=== PATIENT | male | born 1965 | race American Indian/Alaskan Native ===

== ENCOUNTER 2016-06-14 09:31 | Emergency (ER) | payer MEDICAID ==
[2016-06-14 09:35] VITALS: BMI 24.2
[2016-06-14 09:39] VITALS: RESP 18
--- NOTE | 2016-06-14 11:13 | C.PDOC ---
History Of Present Illness 50 y/o male with hepatitis, depression, chronic hiccups, gerd c/o burning chest pain that is getting worse, always present, not improved by food. pt also c/o dark stool for more than a week with regular bm. pt started taking pepto bismol a week ago (stool was already black per patient prior to this) with no improvement in pain. pt ran out of protonix and ranitidine in last week. no fever or chills, no abdominal pain. no diarrhea. denies ah, si and hi. Time Seen by Provider: 06/14/16 10:13 Chief Complaint (Nursing): Medical Clearance History Per: Patient History/Exam Limitations: no limitations Onset/Duration Of Symptoms: Days Severity: Moderate Past Medical History Reviewed: Historical Data, Nursing Documentation, Vital Signs Vital Signs: Last Vital Signs Temp 98.2 F 06/14/16 09:36 Pulse 105 H 06/14/16 09:36 Resp 18 06/14/16 09:36 BP 148/96 H 06/14/16 09:36 Pulse Ox 98 06/14/16 13:15 - Medical History PMH: Anemia, Diabetes, Hepatitis Denies: HIV, HTN, Chronic Kidney Disease, Seizures, Sexually Transmitted Disease Surgical History: Appendectomy, Hernia Repair - [facility] Procedures DETOXIFICATION SERVICES FOR SUBSTANCE ABUSE TREATMENT (04/23/16) INDIV PSYCHOTHERAPY FOR SUBSTANCE ABUSE TREATMENT, SUPPORT (04/23/16) INDIV PSYCHOTHERAPY FOR SUBSTANCE ABUSE, [facility] (04/23/16) Family History: States: Unknown Family Hx - Social History Hx Tobacco Use: Yes Hx Alcohol Use: Yes Hx Substance Use: No (heroin, stopped) - Immunization History Hx Tetanus Toxoid Vaccination: No Hx Influenza Vaccination: No Hx Pneumococcal Vaccination: No Review Of Systems Constitutional: Negative for: Fever, Chills Cardiovascular: Negative for: Chest Pain, Palpitations Respiratory: Negative for: Cough, Shortness of Breath Gastrointestinal: Positive for: Melena. Negative for: Nausea, Vomiting, Abdominal Pain, Constipation Genitourinary: Negative for: Dysuria, Frequency, Incontinence Skin: Negative for: Rash Neurological: Negative for: Weakness, Numbness Psych: Negative for: Depression Physical Exam - Physical Exam Appears: Non-toxic, No Acute Distress Skin: Normal Color, Warm, Dry Head: Atraumatic, Normacephalic Neck: Normal, Normal ROM Chest: Symmetrical, No Deformity, No Tenderness Cardiovascular: Rhythm Regular, No Murmur Respiratory: Normal Breath Sounds, No Rales, No Rhonchi, No Wheezing Gastrointestinal/Abdominal: Bowel Sounds, Soft, No Tenderness Rectal: Normal Exam, Other (dark brown stool) Neurological/Psych: Oriented x3, Normal Speech, Normal Cognition, Normal Motor, Normal Sensation ED Course And Treatment - Laboratory Results Result Diagrams: 06/14/16 11:24 06/14/16 11:24 ECG: Viewed By Me ECG Rhythm: Sinus Rhythm Interpretation Of ECG: non specific t wave, nsr Rate From EC O2 Sat by Pulse Oximetry: 98 Pulse Ox Interpretation: Normal Progress Note: pt feeling much better after iv pepcid,. sts burning in chest resolved. will d/c with outpatient gi f/u and rx for ranitidine. Reassessment Condition: Improved Disposition Counseled Patient/Family Regarding: Diagnosis, Need For Followup, Rx Given - Disposition Referrals: [facility] [Outside] [facility] [Outside] Disposition: HOME/ ROUTINE Disposition Time: 14:29 Condition: IMPROVED Prescriptions: Ranitidine HCl [Ranitidine 150] 150 mg PO DAILY #30 tab Instructions: Gastroesophageal Reflux Disease (ED) Forms: General Discharge Instructions - Clinical Impression Clinical Impression: Gastroesophageal reflux disease
[2016-06-14 11:31] LABS: BASO # 0.1 K/uL (0.0-0.2); BASO % 0.8 % (0.0-2.0); EOS # 0.3 K/uL (0.0-0.7); EOS % 2.5 % (0.0-4.0); HEMATOCRIT 41.2 % (35.0-51.0); LYMPH # 2.6 K/uL (1.0-4.3); LYMPH % 22.1 % (20.0-40.0); MEAN CELL VOLUME 91.1 fL (80.0-94.0); MEAN CORPUSCULAR HEMOGLOBIN 29.3 pg (27.0-31.0); MEAN CORPUSCULAR HGB CONC 32.2 g/dL (33.0-37.0); MEAN PLATELET VOLUME 6.7 fL (7.2-11.7); MONO % 8.6 % (0.0-10.0); RED CELL DISTRIBUTION WIDTH 16.7 % (11.5-14.5); WHITE BLOOD COUNT 11.9 K/uL (4.8-10.8)
[2016-06-14 11:41] LABS: CHLORIDE 97 mmol/L (98-107); POTASSIUM 4.5 mmol/L (3.6-5.2); SODIUM 137 mmol/L (132-148)
[2016-06-14 11:43] LABS: BILIRUBIN,TOTAL 0.7 mg/dL (0.2-1.3); GFR AFRICAN-AMERICAN > 60
[2016-06-14 11:44] LABS: ALB/GLOB RATIO 1.2 (1.0-2.1); ALKALINE PHOSPHATASE 61 U/L (38-126); ALT/SGPT 38 U/L (21-72); AST/SGOT 55 U/L (17-59); BLOOD UREA NITROGEN 16 mg/dL (9-20); CALCIUM 8.5 mg/dl (8.6-10.4); CARBON DIOXIDE 27 mmol/L (22-30); GLUCOSE,RANDOM 86 mg/dL (75-110); TOTAL PROTEIN 7.5 g/dL (6.3-8.3)
[2016-06-14 14:50] VITALS: BP 103/70; PULSE 89; TEMP 97.9
--- NOTE | 2016-06-15 19:59 | CARD ---
APPROVED REPORT EKG Measurement Heart [id number] <Conclusion> Normal sinus rhythm Nonspecific T wave abnormality Abnormal ECG
[2016-06-16 06:38] VITALS: O2SAT 98
== END 2016-06-14 15:26 | disposition home or self-care (01) ==
LOC: C.ER 09:31
DX: K21.9 Gastro-esophageal reflux disease without esophagitis (principal)

== ENCOUNTER 2016-07-15 21:58 | Inpatient (IN) | payer MEDICAID ==
[2016-07-15 21:59] VITALS: BMI 24.2
--- NOTE | 2016-07-15 23:00 | C.PDOC ---
History Of Present Illness Patient BIBA for evaluation s/p foreign body ingestion. Patient states he accidentally "swallowed a toothbrush". He states he has h/o chronic hiccups x approx 1 year, and that he has found when he stimulates his gag reflex with a toothbrush it alleviates the hiccups. 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 He c/o discomfort in his chest, but denies SOB, cough, fever. Time Seen by Provider: 07/15/16 22:07 Chief Complaint (Nursing): Foreign Body History Per: Patient History/Exam Limitations: None Onset/Duration Of Symptoms: Other (45 ORTHODONTIC TREATMENT COORDINATOR) Current Symptoms Are (Timing): Still Present Symptoms Have Been: Continuous Severity: Mild Past Medical History Reviewed: Historical Data, Nursing Documentation, Vital Signs Vital Signs: Last Vital Signs Temp 98.2 F 07/16/16 16:19 Pulse 72 07/16/16 16:19 Resp 20 07/16/16 16:19 BP 112/68 07/16/16 16:19 Pulse Ox 96 07/16/16 16:19 - Medical History PMH: Anemia, Diabetes, Hepatitis Surgical History: Appendectomy, Hernia Repair - [facility] Procedures DETOXIFICATION SERVICES FOR SUBSTANCE ABUSE TREATMENT (04/23/16) INDIV PSYCHOTHERAPY FOR SUBSTANCE ABUSE TREATMENT, SUPPORT (04/23/16) INDIV PSYCHOTHERAPY FOR SUBSTANCE ABUSE, [facility] (04/23/16) Family History: States: No Known Family Hx - Social History Hx Tobacco Use: Yes Hx Alcohol Use: Yes Hx Substance Use: No (heroin, stopped) - Immunization History Hx Tetanus Toxoid Vaccination: No Hx Influenza Vaccination: No Hx Pneumococcal Vaccination: No Review Of Systems Except As Marked, All Systems Reviewed And Found Negative. Cardiovascular: Negative for: Chest Pain, Palpitations Respiratory: Negative for: Cough, Shortness of Breath Physical Exam - Physical Exam Appears: Well, Non-toxic, Other (speaking in full sentences, intermittent hiccups) Skin: Normal Color Head: Normacephalic Eye(s): bilateral: Normal Inspection Nose: Normal Oral Mucosa: Moist Tongue: Normal Appearing, No Swelling Lips: Normal Appearing, No Swelling Throat: Normal, No Erythema, No Exudate, No Drooling Cardiovascular: Rhythm Regular Respiratory: Normal Breath Sounds, No Rales, No Rhonchi, No Stridor, No Wheezing Gastrointestinal/Abdominal: Normal Exam, Bowel Sounds, Soft, No Tenderness Neurological/Psych: Oriented x3 ED Course And Treatment - Laboratory Results Result Diagrams: 07/15/16 22:50 07/15/16 22:50 O2 Sat by Pulse Oximetry: 97 (RA) Pulse Ox Interpretation: Normal - Other Rad CXR X-Ray: Viewed By Me, Read By Radiologist Interpretation: Name: CELSO JUAREZ Age: 50Years M Date: 07/15/2016. Requesting Physician: SMITA BOSWELL : 1965. [facility] Procedure Ordered As Accession Number of. Images. XR CHEST 2 VIEWS FRONTAL &. LAT. XR CHEST TWO VIEWS PA. LAT. [id number]. J. 3. Provided Clinical History: swallowed toothbrush. Page 1 of 2. EXAM: XR Chest, 2 Views. CLINICAL HISTORY: 50 years old, male; Injury or trauma and screening exam; Injury Swallowed tooth brush; Late effect. from previous injury; Other screening; Additional info: Swallowed toothbrush. TECHNIQUE: Frontal and lateral views of the chest. COMPARISON: No relevant prior studies available. FINDINGS: The cardiomediastinal silhouette is unremarkable. The lungs are clear. No subdiaphragmatic free air or pneumothorax. The trachea is midline. A radiopaque foreign body is identified within the middle mediastinum, likely within the esophagus, as. detailed above. This is best identified on lateral view. IMPRESSION: No focal infiltrate or effusion. Radiopaque foreign body, as detailed above. Thank you for allowing us to participate in the care of your patient. Dictated and Authenticated by: Melissa Barrera MD - CT Scan/US CT SCAN CHEST/ABD Other Rad Studies (CT/US): Read By Radiologist, Radiology Report Reviewed CT/US Interpretation: Name: CELSO JUAREZ Age: 50Years M Date: 07/15/2016. SSN: [id number] : 1965. Study: CT CHEST WO Requesting Physician: SMITA OBSWELL. Images: 811. Addl Studies : [id number] - CT ABDOMEN WO (0). Provided Clinical History: swallowed toothbrush. CONFIDENTIALITY STATEMENT. This transmission is confidential and is intended to be a privileged communication. It is intended only for the use of the addressee. Access to this. message by anyone else is unauthorized. If you are not the intended recipient, any disclosure, copying, distribution or any action taken, or omitted to. be taken in reliance on it is prohibited and may be unlawful. If you received this communication in error, please notify us by telephone, so that return. of this document to us can be arranged. Page 1 of 3. EXAM: CT Chest Without Intravenous Contrast. CLINICAL HISTORY: 50 years old, male; Pain; Abdominal pain; Other: Swallowed toothbrush; Chest pain; Patient HX: Cxr. and soft tissue neck , no report, images sent already. TECHNIQUE: Axial computed tomography images of the chest without intravenous contrast. This CT exam was. performed using one or more of the following dose reduction techniques: automated exposure. control, adjustment of the mA and/or kV according to patient size, and/or use of iterative. reconstruction technique. Coronal and sagittal reformatted images were created and reviewed. FINDINGS: Lungs: No mass. No consolidation. Pleural spaces: No significant effusion. No pneumothorax. Heart: No cardiomegaly. No significant pericardial effusion. Vasculature: No aortic aneurysm. Lymph nodes: No enlarged lymph nodes. Bones: No acute fracture. At approximately the level of T10/T11, within the esophagus is a 3.8 cm radiopaque foreign body,. presumably representing the toothbrush, by patient's history. IMPRESSION: Radiopaque foreign body within the esophagus or at the level of T10/T11, as detailed above. [facility]. Final Radiology Report [id number]. Name: CELSO JUAREZ Age: 50Years M Date: 07/15/2016. SSN: [id number] : 1965. Study: CT CHEST WO Requesting Physician: SMITA BOSWELL. Images: 811. Addl Studies: [id number] - CT ABDOMEN WO (0). Provided Clinical History: swallowed toothbrush. CONFIDENTIALITY STATEMENT. This transmission is confidential and is intended to be a privileged communication. It is intended only for the use of the addressee. Access to this. message by anyone else is unauthorized. If you are not the intended recipient, any disclosure, copying, distribution or any action taken, or omitted to. be taken in reliance on it is prohibited and may be unlawful. If you received this communication in error, please notify us by telephone, so that return. of this document to us can be arranged. Page 2 of 3. . EXAM: CT Abdomen Without Intravenous Contrast. CLINICAL HISTORY: 50 years old, male; Pain; Abdominal pain; Other: Swallowed toothbrush; Chest pain; Patient HX: Cxr. and soft tissue neck , no report, images sent already. TECHNIQUE: Axial computed tomography images of the abdomen without intravenous contrast. This CT exam. was performed using one or more of the following dose reduction techniques: automated exposure. control, adjustment of the mA and/or kV according to patient size, and/or use of iterative. reconstruction technique. Coronal and sagittal reformatted images were created and reviewed. COMPARISON: CR - CHEST TWO VIEWS (PA/LAT) 07/15/2016 10:28:25 PM. FINDINGS: Lower thorax: The bilateral lung bases are clear. ABDOMEN: Liver: No acute findings. Gallbladder and bile ducts: No acute finding. No calcified stones. No intra- extrahepatic biliary ductal. dilation. [facility]. Final Radiology Report [id number]. Name: CELSO JUAREZ Age: 50Years M Date: 07/15/2016. SSN: [id number] : 1965. Study: CT CHEST WO Requesting Physician: SMITA BOSWELL. Images : 811. Addl Studies: [id number] - CT ABDOMEN WO (0). Provided Clinical History: swallowed toothbrush. CONFIDENTIALITY STATEMENT. This transmission is confidential and is intended to be a privileged communication. It is intended only for the use of the addressee. Access to this. message by anyone else is unauthorized. If you are not the intended recipient, any disclosure, copying, distribution or any action taken, or omitted to. be taken in reliance on it is prohibited and may be unlawful. If you received this communication in error, please notify us by telephone, so that return. of this document to us can be arranged. Page 3 of 3. Pancreas: Limited evaluation secondary to the lack of intravenous contrast. Spleen: No acute findings. Adrenals: No acute findings. Kidneys and ureters: No obstructing stones. No hydronephrosis. Stomach and bowel: Radiopaque foreign body within the esophagus, at the level of T10/T11, as. detailed above. No additional acute pathology, as detailed above. IMPRESSION: Radiopaque foreign body within the esophagus at the level of T10/T11, as detailed above. Thank you for allowing us to participate in the care of your patient. Dictated and Authenticated by: Melissa Barrera MD. 11:50 PM Eastern Time ([place] & [place]) Progress Note: Blood work, CXR and soft tissue neck Xray ordered and reviewed. Patient requesting something for hiccups - IM thorazine ordered. 10:55pm- Spoke with Dr. Benítez GI fellow, he will discuss with attending. He recommends cancelling Ct scan at this time. Will call back with plan. 11:05PM - Spoke with GI Fellow, he is on way in to see patient - would like CT scan to evaluate if foreign body is past pylorus (if yes, then will need surgical eval) . 11:55pm- Patient will be taken for endoscopy by GI (Dr. Mcfarland) as per GI fellow Dr. Benítez. Disposition - Disposition Disposition: HOSPITALIZED Disposition Time: 23:58 Condition: STABLE - Clinical Impression Clinical Impression: Foreign body Decision To Admit - Pt Status Changed To: Hospital Disposition Of: SDS- Endo,OR,Cath,IR - . Bed Request Type: Same Day Surgery Admitting Physician: Reji Mcfarland Patient Diagnosis: Foreign body
[2016-07-15 23:07] LABS: BASO # 0.1 K/uL (0.0-0.2); BASO % 0.8 % (0.0-2.0); EOS # 0.3 K/uL (0.0-0.7); EOS % 2.4 % (0.0-4.0); HEMATOCRIT 41.5 % (35.0-51.0); LYMPH # 2.7 K/uL (1.0-4.3); LYMPH % 25.3 % (20.0-40.0); MEAN CELL VOLUME 92.2 fL (80.0-94.0); MEAN CORPUSCULAR HEMOGLOBIN 29.7 pg (27.0-31.0); MEAN CORPUSCULAR HGB CONC 32.1 g/dL (33.0-37.0); MEAN PLATELET VOLUME 6.5 fL (7.2-11.7); MONO % 9.6 % (0.0-10.0); RED CELL DISTRIBUTION WIDTH 14.8 % (11.5-14.5); WHITE BLOOD COUNT 10.6 K/uL (4.8-10.8)
[2016-07-15 23:16] LABS: CHLORIDE 97 mmol/L (98-107); SODIUM 137 mmol/L (132-148)
[2016-07-15 23:19] LABS: ALB/GLOB RATIO 1.3 (1.0-2.1); ALKALINE PHOSPHATASE 78 U/L (38-126); ALT/SGPT 51 U/L (21-72); AST/SGOT 43 U/L (17-59); BILIRUBIN,TOTAL 0.8 mg/dL (0.2-1.3); BLOOD UREA NITROGEN 12 mg/dL (9-20); CALCIUM 8.8 mg/dl (8.6-10.4); CARBON DIOXIDE 28 mmol/L (22-30); GFR AFRICAN-AMERICAN > 60; GLUCOSE,RANDOM 93 mg/dL (75-110); INR 1.1; TOTAL PROTEIN 7.9 g/dL (6.3-8.3)
--- NOTE | 2016-07-15 23:32 | CP.PCM.CON ---
<Ankit Benítez - Last Filed: 07/16/16 01:08> History of Present Illness - History of Present Illness History of Present Illness: PGY4 GI Fellow Consult Note Patient is a 50yo male with PMHx significant for chronic hiccups, diabetes, GERD , HCV (untreated), depression, EtOH and heroin abuse in remission who presented to the ED with chest pain following ingestion of his toothbrush. The patient states that he suffers with chronic hiccups and can only relieve them with stimulation of his gag reflex. Tonight, he tried to induce gagging using his toothbrush and accidentally swallowed it in the process. Currently, he admits to substernal chest pain along with persistent hiccups. He is able to speak in full sentences and is tolerating his secretions without issue. He admits that this exact problem had happened approximately one year ago and required emergent EGD for retrieval. He also admits that he underwent laryngoscopy this morning at his ENT physician's office for evaluation of his chronic hiccups. He uses Thorazine daily for hic chronic hiccups with minimal relief. Currently, he denies any fever, chills, abdominal pain, nausea or vomiting. 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 absent: Dyspnea, Palpitations - Respiratory Respiratory: Cough. absent: Dyspnea, Change in Mucous Color - Gastrointestinal Gastrointestinal: absent: Abdominal Pain, Constipation, Cramping, Diarrhea, Dyspepsia, Dysphagia, Heartburn, Hematemesis, Hematochezia, Melena, Nausea, Vomiting - Genitourinary Genitourinary: absent: Dysuria, Urinary Frequency, Urinary Urgency - Musculoskeletal Musculoskeletal: absent: Back Pain, Neck Pain - Integumentary Integumentary: absent: New Lesions, Rash - Neurological Neurological: absent: Dizziness, Numbness, Focal Weakness - Psychiatric Psychiatric: absent: Anxiety, Depression - Endocrine Endocrine: absent: Polydipsia, Polyphagia, Polyuria - Hematologic/Lymphatic Hematologic: absent: Easy Bleeding, Easy Bruising, Lymphadenopathy Past Patient History - Past Medical History & Family History Past Medical History?: Yes - Past Social History Smoking Status: Heavy Smoker > 10 Cigarettes Daily - CARDIAC Hx Hypertension: No - PULMONARY Hx Respiratory Disorders: No Hx Tuberculosis: No - NEUROLOGICAL Hx Seizures: No - HEENT Hx HEENT Problems: No - RENAL Hx Chronic Kidney Disease: No - ENDOCRINE/METABOLIC Hx Endocrine Disorders: Yes Hx Diabetes Mellitus Type 2: Yes - HEMATOLOGICAL/ONCOLOGICAL Hx Anemia: Yes Hx Human Immunodeficiency Virus (HIV): No - INTEGUMENTARY Hx Dermatological Problems: No - MUSCULOSKELETAL/RHEUMATOLOGICAL Hx Musculoskeletal Disorders: No Hx Falls: No - GASTROINTESTINAL Hx Gastrointestinal Disorders: Yes Hx Gastroesophageal Reflux: Yes (GERD) - GENITOURINARY/GYNECOLOGICAL Hx Sexually Transmitted Disorders: No - PSYCHIATRIC Hx Substance Use: No (heroin, stopped) - SURGICAL HISTORY Hx Appendectomy: Yes - ANESTHESIA Hx Anesthesia: Yes Hx Anesthesia Reactions: No Hx Malignant Hyperthermia: No Meds Allergies/Adverse Reactions: Allergies Allergy/AdvReac Type Severity Reaction Status Date / Time No Known Allergies Allergy Verified 07/15/16 22:09 Physical Exam - Constitutional Appears: Non-toxic, No Acute Distress - Eye Exam Eye Exam: EOMI, PERRL - ENT Exam ENT Exam: Mucous Membranes Moist - Respiratory Exam Respiratory Exam: Clear to Auscultation Bilateral. absent: Rales, Rhonchi, Wheezes - Cardiovascular Exam Cardiovascular Exam: RRR, +S1, +S2 - GI/Abdominal Exam GI & Abdominal Exam: Normal Bowel Sounds, Soft. 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 - Neurological Exam Neurological exam: Alert, Oriented x3 - Psychiatric Exam Psychiatric exam: Anxious, Normal Mood - Skin Skin Exam: Dry, Warm Results - Vital Signs Recent Vital Signs: Last Vital Signs Temp 97.5 F L 07/15/16 22:04 Pulse 96 H 07/15/16 22:04 Resp 14 07/15/16 22:04 BP 126/92 H 07/15/16 22:04 Pulse Ox 97 07/15/16 23:09 - Labs Result Diagrams: 07/15/16 22:50 07/15/16 22:50 Labs: Laboratory Results - last 24 hr 07/15/16 22:50 WBC 10.6 RBC 4.50 Hgb 13.3 Hct 41.5 MCV 92.2 MCH 29.7 MCHC 32.1 L RDW 14.8 H Plt Count 296 MPV 6.5 L Neut % (Auto) 61.9 Lymph % (Auto) 25.3 Orange % (Auto) 9.6 Eos % (Auto) 2.4 Baso % (Auto) 0.8 Neut # 6.5 Lymph # 2.7 Orange # 1.0 H Eos # 0.3 Baso # 0.1 PT 11.8 INR 1.1 APTT 37 H Sodium 137 Potassium 4.0 Chloride 97 L Carbon Dioxide 28 Anion Gap 16 BUN 12 Creatinine 0.9 Est GFR ( Amer) > 60 Est GFR (Non-Af Amer) > 60 Random Glucose 93 Calcium 8.8 Total Bilirubin 0.8 AST 43 ALT 51 Alkaline Phosphatase 78 Total Protein 7.9 Albumin 4.5 Globulin 3.4 Albumin/Globulin Ratio 1.3 Blood Type A POSITIVE Assessment & Plan - Assessment and Plan (Free Text) Assessment: Patient is a 50yo male with PMHx significant for chronic hiccups, diabetes, GERD , HCV (untreated), depression, EtOH and heroin abuse in remission who presented to the ED with chest pain following ingestion of his toothbrush. -Foreign body ingestion, appears located in the distal esophagus on imaging -Chronic hiccups -H/O HCV, treatment naive -Diabetes mellitus, type 2 -H/O polysubstance abuse -Tobacco abuse Plan: -Plain films and CT Chest/Abd reviewed; appears to have foreign object ( toothbrush) in the distal esophagus -Will mobilize endo team/anesthesia and perform EGD with removal of foreign body this evening -NPO -Further recommendations pending findings on EGD - Date & Time Date: 07/16/16 Time: 23:30 <Reji Mcfarland - Last Filed: 07/16/16 01:22> Results - Vital Signs Recent Vital Signs: Last Vital Signs Temp 97.5 F L 07/15/16 22:04 Pulse 96 H 07/15/16 22:04 Resp 14 07/15/16 22:04 BP 126/92 H 07/15/16 22:04 Pulse Ox 97 07/16/16 00:04 - Labs Result Diagrams: 07/15/16 22:50 07/15/16 22:50 Labs: Laboratory Results - last 24 hr 07/15/16 22:50 WBC 10.6 RBC 4.50 Hgb 13.3 Hct 41.5 MCV 92.2 MCH 29.7 MCHC 32.1 L RDW 14.8 H Plt Count 296 MPV 6.5 L Neut % (Auto) 61.9 Lymph % (Auto) 25.3 Orange % (Auto) 9.6 Eos % (Auto) 2.4 Baso % (Auto) 0.8 Neut # 6.5 Lymph # 2.7 Orange # 1.0 H Eos # 0.3 Baso # 0.1 PT 11.8 INR 1.1 APTT 37 H Sodium 137 Potassium 4.0 Chloride 97 L Carbon Dioxide 28 Anion Gap 16 BUN 12 Creatinine 0.9 Est GFR ( Amer) > 60 Est GFR (Non-Af Amer) > 60 Random Glucose 93 Calcium 8.8 Total Bilirubin 0.8 AST 43 ALT 51 Alkaline Phosphatase 78 Total Protein 7.9 Albumin 4.5 Globulin 3.4 Albumin/Globulin Ratio 1.3 Blood Type A POSITIVE Antibody Screen Negative Attending/Attestation - Attestation I have personally seen and examined this patient.: Yes I have fully participated in the care of the patient.: Yes I have reviewed all pertinent clinical information: Yes Notes (Text): 07/16/16 01:18 I have seen and examined patient with GI fellow. Agree with above documentation with the following additions. In brief, this is a 50 year old male with history of chronic HCV, DM who presents to hospital following accidental ingestion of toothbrush. He suffers from chronic hiccups and while using a toothbrush to stimulate gag reflex he inadvertently swallowed toothbrush. He denies nausea, vomiting but does endorse mid sternal chest pain. Of note, patient with similar prior episode one year ago. DM Chronic HCV Chest pain, foreign body ingestion CT imaging reviewed by me showing distal esophageal foreign body likely corresponding to history of swallowed toothbrush - NPO - Plan for emergent endoscopy for removal of esophageal foreign body - Further plan pending patient clinical progress
--- NOTE | 2016-07-15 23:50 | CT ---
EXAM: CT Chest Without Intravenous Contrast CLINICAL HISTORY: 50 years old, male; Pain; Abdominal pain; Other: Swallowed toothbrush; Chest pain; Patient HX: Cxr and soft tissue neck , no report, images sent already TECHNIQUE: Axial computed tomography images of the chest without intravenous contrast. This CT exam was performed using one or more of the following dose reduction techniques: automated exposure control, adjustment of the mA and/or kV according to patient size, and/or use of iterative reconstruction technique. Coronal and sagittal reformatted images were created and reviewed. FINDINGS: Lungs: No mass. No consolidation. Pleural spaces: No significant effusion. No pneumothorax. Heart: No cardiomegaly. No significant pericardial effusion. Vasculature: No aortic aneurysm. Lymph nodes: No enlarged lymph nodes. Bones: No acute fracture. At approximately the level of T10/T11, within the esophagus is a 3.8 cm radiopaque foreign body, presumably representing the toothbrush, by patient's history. IMPRESSION: Radiopaque foreign body within the esophagus or at the level of T10/T11, as detailed above. EXAM: CT Abdomen Without Intravenous Contrast CLINICAL HISTORY: 50 years old, male; Pain; Abdominal pain; Other: Swallowed toothbrush; Chest pain; Patient HX: Cxr and soft tissue neck , no report, images sent already TECHNIQUE: Axial computed tomography images of the abdomen without intravenous contrast. This CT exam was performed using one or more of the following dose reduction techniques: automated exposure control, adjustment of the mA and/or kV according to patient size, and/or use of iterative reconstruction technique. Coronal and sagittal reformatted images were created and reviewed. COMPARISON: CR - CHEST TWO VIEWS (PA/LAT) 07/15/2016 10:28:25 PM FINDINGS: Lower thorax: The bilateral lung bases are clear. ABDOMEN: Liver: No acute findings Gallbladder and bile ducts: No acute finding. No calcified stones. No intra-extrahepatic biliary ductal dilation. Pancreas: Limited evaluation secondary to the lack of intravenous contrast. Spleen: No acute findings. Adrenals: No acute findings. Kidneys and ureters: No obstructing stones. No hydronephrosis. Stomach and bowel: Radiopaque foreign body within the esophagus, at the level of T10/T11, as detailed above. No additional acute pathology, as detailed above. IMPRESSION: Radiopaque foreign body within the esophagus at the level of T10/T11, as detailed above.
[2016-07-16] MEDS ORDERED: Succinylcholine Chloride 20 mg/ml Syr (5 ml) IV ONE (01:04)
[2016-07-16] MEDS ORDERED: Propofol 10 mg/ml Inj (20 ML) ONE (01:04)
[2016-07-16] MEDS ORDERED: HYDROmorphone 0.5 mg/0.5 ml ISec IVP PRN (01:59)
[2016-07-16] MEDS ORDERED: Pneumococcal 23-Valent Vaccine IM ONE ×2 (04:15→10:00)
--- NOTE | 2016-07-16 07:24 | RAD ---
HISTORY: swallowed toothbrush COMPARISON: No prior. TECHNIQUE: Chest PA and lateral FINDINGS: LUNGS: No evidence of focal infiltrate or consolidation in the lungs. PLEURA: No significant pleural effusion identified. No pneumothorax apparent. CARDIOVASCULAR: Normal. OSSEOUS STRUCTURES: No significant abnormalities. VISUALIZED UPPER ABDOMEN: Normal. OTHER FINDINGS: None. IMPRESSION: No active disease.
[2016-07-16] MEDS ORDERED: Influenza Virus Vaccine 45 mcg/0.5 ml Syr IM ONE (10:00)
--- NOTE | 2016-07-16 10:02 | RAD ---
Neck soft tissue radiograph History: Patient swallowed to brush. Comparison: None. Technique: 2 views of the soft tissues of the neck and single limited view of the mid chest and abdomen were obtained. Findings: No radiopaque foreign body identified. Degenerative changes of the cervical spine noted. Dental and mandibular hardware seen. Impression: No radiopaque foreign body identified. If there is continued suspicion of foreign body, cross-sectional imaging should be obtained. Please note that this report is in general agreement with the preliminary report provided by [facility].
--- NOTE | 2016-07-16 13:36 | CP.PCM.HP ---
<Diamante Magdaleno - Last Filed: 07/16/16 13:25> History of Present Illness - History of Present Illness History of Present Illness: CC: "I swallowed my toothbrush" HPI: 50 year old male with past medical history of diabetes mellitus , GERD, hepatitis C, depression, alcohol and heroin abuse, and chronic singultus presents to the ED with chest discomfort after ingesting his toothbrush. Patient states that he has a hard time controlling his hiccups and he achieves relief by stimulating his gag reflex with a toothbrush. He tried stimulating a gag reflex with his toothbrush last night and concurrently swallowed his toothbrush. He admits that this happened around one year ago and required emergent EGD for removal of toothbrush. Patient is able to speak normally. He also states that he underwent laryngoscopy this morning at his ENT' s office for evaluation of his hiccups. He takes Thorazine by mouth daily for the hiccups but it provides little relief. He denies headache, fever chills, palpitations, shortness of breath, nausea, vomiting, and abdominal pain. 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, appendectomy, left jaw metal implant following fracture Family Hx: denies any significant family history Social Hx: denies but EMR shows prior alcohol and heroin abuse - currently sober ; smokes 1/2-1 ppd Present on Admission - Present on Admission Any Indicators Present on Admission: No History of DVT/PE: No History of Uncontrolled Diabetes: No Urinary Catheter: No Decubitus Ulcer Present: No Review of Systems - Constitutional Constitutional: absent: Chills, Fever - EENT Eyes: absent: Change in Vision, Decreased Night Vision Nose/Mouth/Throat: absent: Nasal Congestion, Nasal Discharge - Cardiovascular Cardiovascular: Chest Pain - Respiratory Respiratory: absent: Hemoptysis, Wheezing - Gastrointestinal Gastrointestinal: absent: Abdominal Pain, Diarrhea Additional comments: singultus - Genitourinary Genitourinary: absent: Difficulty Urinating, Dysuria - Integumentary Integumentary: absent: Change in Nails, New Lesions - Neurological Neurological: absent: Abnormal Movements, Numbness, Syncope, Tingling - Psychiatric Psychiatric: Depression Past Patient History - Past Medical History & Family History Past Medical History?: Yes - Past Social History Smoking Status: Heavy Smoker > 10 Cigarettes Daily - CARDIAC Hx Hypertension: No - PULMONARY Hx Respiratory Disorders: No Hx Tuberculosis: No - NEUROLOGICAL Hx Seizures: No - HEENT Hx HEENT Problems: No - RENAL Hx Chronic Kidney Disease: No - ENDOCRINE/METABOLIC Hx Endocrine Disorders: Yes Hx Diabetes Mellitus Type 2: Yes - HEMATOLOGICAL/ONCOLOGICAL Hx Anemia: Yes Hx Human Immunodeficiency Virus (HIV): No - INTEGUMENTARY Hx Dermatological Problems: No - MUSCULOSKELETAL/RHEUMATOLOGICAL Hx Musculoskeletal Disorders: No Hx Falls: No - GASTROINTESTINAL Hx Gastrointestinal Disorders: Yes Hx Gastroesophageal Reflux: Yes (GERD) - GENITOURINARY/GYNECOLOGICAL Hx Sexually Transmitted Disorders: No - PSYCHIATRIC Hx Substance Use: Yes - SURGICAL HISTORY Hx Appendectomy: Yes - ANESTHESIA Hx Anesthesia: Yes Hx Anesthesia Reactions: No Hx Malignant Hyperthermia: No Meds Allergies/Adverse Reactions: Allergies Allergy/AdvReac Type Severity Reaction Status Date / Time No Known Allergies Allergy Verified 07/15/16 22:09 Physical Exam - Constitutional Appears: Non-toxic, No Acute Distress - Head Exam Head Exam: ATRAUMATIC, NORMAL INSPECTION, NORMOCEPHALIC - Eye Exam Eye Exam: EOMI, Normal appearance Pupil Exam: NORMAL ACCOMODATION - ENT Exam ENT Exam: Mucous Membranes Moist - Neck Exam Neck exam: Positive for: Normal Inspection - Respiratory Exam Respiratory Exam: Clear to Auscultation Bilateral, NORMAL BREATHING PATTERN. absent: Rales, Rhonchi, Wheezes - Cardiovascular Exam Cardiovascular Exam: +S1, +S2. absent: Tachycardia - GI/Abdominal Exam GI & Abdominal Exam: Normal Bowel Sounds, Soft. absent: Distended, Firm - Neurological Exam Neurological exam: Alert, Oriented x3, Reflexes Normal - Skin Skin Exam: Intact, Warm Results - Vital Signs Recent Vital Signs: Last Vital Signs Temp 97.9 F 07/16/16 08:56 Pulse 93 H 07/16/16 08:56 Resp 18 07/16/16 08:56 BP 107/72 07/16/16 08:56 Pulse Ox 95 07/16/16 08:56 - Labs Result Diagrams: 07/15/16 22:50 07/15/16 22:50 Assessment & Plan - Assessment and Plan (Free Text) Assessment: Foreign Body Ingestion GI consulted, Dr. Mcfarland. Toothbrush removed via EGD EGD: Toothbrush found in esophagus. Z-line irregular, 34 cm from incisors. 4 cm hiatus hernia. Gastritis. Normal examined duodenum. Chest/Abdomen CT: Radiopaque foreign body within the esophagus at the level of T10/T11. (please see full report) Chest X-RAY (07/15/16): No active disease (please see full report) Neck Soft Tissue X-RAY (07/15/16): No radiopaque foreign body identified. If suspicion of foreign body, cross-sectional imaging should be obtained. (please see full report) Diabetes Mellitus Continue home medications Accuchecks Chronic Singultus Thorazine 50 mg IM once given Dispo Follow-up with Gastroenterology as outpatient in [facility] - Date & Time Date: 07/16/16 Time: 13:50 <Christopher Andres - Last Filed: 07/16/16 13:53> Results - Vital Signs Recent Vital Signs: Last Vital Signs Temp 97.9 F 07/16/16 08:56 Pulse 93 H 07/16/16 08:56 Resp 18 07/16/16 08:56 BP 107/72 07/16/16 08:56 Pulse Ox 95 07/16/16 08:56 - Labs Result Diagrams: 07/15/16 22:50 07/15/16 22:50 Attending/Attestation - Attestation I have personally seen and examined this patient.: Yes I have fully participated in the care of the patient.: Yes I have reviewed all pertinent clinical information: Yes Notes (Text): 07/16/16 13:53 Patient was seen and examined at bedside with the resident. I agree with the assessment and plan as stated above. Patient appears comfortable Status post EGD and removal of foreign body Patient is clear for discharge by GI. We will discharge the patient home today.
[2016-07-16 16:23] VITALS: BP 112/68; PULSE 72; RESP 20; TEMP 98.2
[2016-07-16 18:55] VITALS: O2SAT 97
--- NOTE | 2016-07-16 19:30 | CP.PCM.DIS ---
<Diamante Magdaleno - Last Filed: 07/16/16 19:27> Provider - Provider Date of Admission: 07/16/16 13:20 Attending physician: Christopher Andres MD Primary care physician: none Consults: GI: Dr. Mcfarland Time Spent in preparation of Discharge (in minutes): 31 Diagnosis - Discharge Diagnosis (1) Foreign body Status: Acute Comment: please see hospital course (2) GERD (gastroesophageal reflux disease) Status: Acute Comment: please see hospital course (3) Opioid use disorder, severe, dependence Status: Acute Comment: please see hospital course Hospital Course - Lab Results Lab Results: Most Recent Lab Values WBC 10.6 K/uL (4.8-10.8) 07/15/16 22:50 RBC 4.50 Mil/uL (4.40-5.90) 07/15/16 22:50 Hgb 13.3 g/dL (12.0-18.0) 07/15/16 22:50 Hct 41.5 % (35.0-51.0) 07/15/16 22:50 MCV 92.2 fL (80.0-94.0) 07/15/16 22:50 MCH 29.7 pg (27.0-31.0) 07/15/16 22:50 MCHC 32.1 g/dL (33.0-37.0) L 07/15/16 22:50 RDW 14.8 % (11.5-14.5) H 07/15/16 22:50 Plt Count 296 K/uL (130-400) 07/15/16 22:50 MPV 6.5 fL (7.2-11.7) L 07/15/16 22:50 Neut % (Auto) 61.9 % (50.0-75.0) 07/15/16 22:50 Lymph % (Auto) 25.3 % (20.0-40.0) 07/15/16 22:50 Towner % (Auto) 9.6 % (0.0-10.0) 07/15/16 22:50 Eos % (Auto) 2.4 % (0.0-4.0) 07/15/16 22:50 Baso % (Auto) 0.8 % (0.0-2.0) 07/15/16 22:50 Neut # 6.5 K/uL (1.8-7.0) 07/15/16 22:50 Lymph # 2.7 K/uL (1.0-4.3) 07/15/16 22:50 Towner # 1.0 K/uL (0.0-0.8) H 07/15/16 22:50 Eos # 0.3 K/uL (0.0-0.7) 07/15/16 22:50 Baso # 0.1 K/uL (0.0-0.2) 07/15/16 22:50 PT 11.8 SECONDS (9.7-12.2) 07/15/16 22:50 INR 1.1 07/15/16 22:50 APTT 37 SECONDS (21-34) H 07/15/16 22:50 Sodium 137 mmol/L (132-148) 07/15/16 22:50 Potassium 4.0 mmol/L (3.6-5.2) 07/15/16 22:50 Chloride 97 mmol/L (98-107) L 07/15/16 22:50 Carbon Dioxide 28 mmol/L (22-30) 07/15/16 22:50 Anion Gap 16 (10-20) 07/15/16 22:50 BUN 12 mg/dL (9-20) 07/15/16 22:50 Creatinine 0.9 MG/DL (0.8-1.5) 07/15/16 22:50 Est GFR ( Amer) > 60 07/15/16 22:50 Est GFR (Non-Af Amer) > 60 07/15/16 22:50 Random Glucose 93 mg/dL (75-110) 07/15/16 22:50 Calcium 8.8 mg/dl (8.6-10.4) 07/15/16 22:50 Total Bilirubin 0.8 mg/dL (0.2-1.3) 07/15/16 22:50 AST 43 U/L (17-59) 07/15/16 22:50 ALT 51 U/L (21-72) 07/15/16 22:50 Alkaline Phosphatase 78 U/L (38-126) 07/15/16 22:50 Total Protein 7.9 g/dL (6.3-8.3) 07/15/16 22:50 Albumin 4.5 g/dL (3.5-5.0) 07/15/16 22:50 Globulin 3.4 gm/dL (2.2-3.9) 07/15/16 22:50 Albumin/Globulin Ratio 1.3 (1.0-2.1) 07/15/16 22:50 Blood Type A POSITIVE 07/15/16 22:50 Antibody Screen Negative 07/15/16 22:50 - Hospital Course Hospital Course: On hospital admission: HPI:50 year old male with PMH diabetes mellitus, GERD, hepatitis C, depression, alcohol and heroin abuse, and chronic singultus presents to the ED with chest discomfort after ingesting his toothbrush. Patient states that he has a hard time controlling his hiccups and he achieves relief by stimulating his gag reflex with a toothbrush. He tried stimulating a gag reflex with his toothbrush last night and concurrently swallowed his toothbrush. He admits that this happened around one year ago and required emergent EGD for removal of toothbrush. Patient is able to speak normally. He also states that he underwent laryngoscopy this morning at his ENT's office for evaluation of his hiccups. He takes Thorazine by mouth daily for the hiccups but it provides little relief. He denies headache, fever, chills, palpitations, shortness of breath, nausea, vomiting, and abdominal pain. 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 If there is continued suspicion of foreign body, cross-sectional imaging should be obtained. Chest x-ray (07/15/16): No active disease Chest/abdomen CT (07/15/16): Radiopaque foreign body within the esophagus at the level of T10/T11 EKG (07/15/16): Normal sinus rhythm. Possible left atrium enlargement Endoscopy (07/16/16): An esophageal foreign body (toothbrush) was found in the middle third of the esophagus. There was surrounding mucosal trauma noted. Removal of foreign body was accomplished using a snare. A 4cm hiatal hernia and gastritis was noted. Recommend outpatient follow up. (1) Foreign body ingestion Patient underwent imaging as described above and also had basic lab workup with no significant findings. Gastroenterology team removed toothbrush via EGD. Patient deemed stable after EGD for discharge following morning. (2)Chronic Singultus Thorazine 50mg IM was given once in ED. Patient stated that the injection provided significantly more relief than the oral dose he takes at home. (3) Substance Abuse Patient counseled on cessation of ethanol and heroine abuse. He has noted history of hepatitis C infection, never treated. Please note this is a summary of the hospital course. For full details, please see patient chart. Discharge Instructions: Patient medically stable for discharge. Patient instructed to continue taking home medications. Patient instructed to follow-up in [facility] within one week of discharge. ([phone]) Patient instructed to follow-up with dining service supervisor as an outpatient within one week of discharge (will be referred from [facility]). Patient instructed to return to the emergency department if symptoms recur. Patient given detailed instructions at bedside. Patient understands and agrees. - Date & Time of H&P Date of H&P: 07/16/16 Time of H&P: 13:25 Discharge Exam - Head Exam Head Exam: ATRAUMATIC, NORMAL INSPECTION, NORMOCEPHALIC - Eye Exam Eye Exam: EOMI, Normal appearance, PERRL Pupil Exam: PERRL - ENT Exam ENT Exam: Mucous Membranes Moist - Neck Exam Neck exam: Full Rom, Normal Inspection - Respiratory Exam Respiratory Exam: Clear to PA & Lateral, NORMAL BREATHING PATTERN, UNREMARKABLE - Cardiovascular Exam Cardiovascular Exam: +S1, +S2. absent: Tachycardia - GI/Abdominal Exam GI & Abdominal Exam: Normal Bowel Sounds, Soft, Unremarkable. absent: Firm, Mass - Extremities Exam Extremities exam: full ROM, pedal pulses present - Back Exam Back exam: absent: tenderness - Neurological Exam Neurological exam: Alert, Oriented x3, Reflexes Normal - Psychiatric Exam Psychiatric exam: Normal Affect, Normal Mood - Skin Skin Exam: Dry, Normal Color, Warm Discharge Plan - Follow Up Plan Condition: GOOD Disposition: HOSPICE - HOME Instructions: Gastroesophageal Reflux Disease (DC), Gastroesophageal Reflux Disease (GEN), Esophageal Foreign Body (GEN), Foreign Body Ingestion (GEN) Additional Instructions: Patient medically stable for discharge. Patient instructed to continue taking home medications. Patient instructed to follow-up in [facility] within one week of discharge. ([phone]) Patient instructed to follow-up with dining service supervisor as an outpatient within one week of discharge (will be referred from [facility]). Patient instructed to return to the emergency department if symptoms recur. Patient given detailed instructions at bedside. Patient understands and agrees. Referrals: Reji Mcfarland MD [Staff Provider] - <Christopher Andres - Last Filed: 07/17/16 12:12> Provider - Provider Date of Admission: 07/16/16 13:20 Attending physician: Christopher Andres MD Hospital Course - Lab Results Lab Results: Most Recent Lab Values WBC 10.6 K/uL (4.8-10.8) 07/15/16 22:50 RBC 4.50 Mil/uL (4.40-5.90) 07/15/16 22:50 Hgb 13.3 g/dL (12.0-18.0) 07/15/16 22:50 Hct 41.5 % (35.0-51.0) 07/15/16 22:50 MCV 92.2 fL (80.0-94.0) 07/15/16 22:50 MCH 29.7 pg (27.0-31.0) 07/15/16 22:50 MCHC 32.1 g/dL (33.0-37.0) L 07/15/16 22:50 RDW 14.8 % (11.5-14.5) H 07/15/16 22:50 Plt Count 296 K/uL (130-400) 07/15/16 22:50 MPV 6.5 fL (7.2-11.7) L 07/15/16 22:50 Neut % (Auto) 61.9 % (50.0-75.0) 07/15/16 22:50 Lymph % (Auto) 25.3 % (20.0-40.0) 07/15/16 22:50 Towner % (Auto) 9.6 % (0.0-10.0) 07/15/16 22:50 Eos % (Auto) 2.4 % (0.0-4.0) 07/15/16 22:50 Baso % (Auto) 0.8 % (0.0-2.0) 07/15/16 22:50 Neut # 6.5 K/uL (1.8-7.0) 07/15/16 22:50 Lymph # 2.7 K/uL (1.0-4.3) 07/15/16 22:50 Towner # 1.0 K/uL (0.0-0.8) H 07/15/16 22:50 Eos # 0.3 K/uL (0.0-0.7) 07/15/16 22:50 Baso # 0.1 K/uL (0.0-0.2) 07/15/16 22:50 PT 11.8 SECONDS (9.7-12.2) 07/15/16 22:50 INR 1.1 07/15/16 22:50 APTT 37 SECONDS (21-34) H 07/15/16 22:50 Sodium 137 mmol/L (132-148) 07/15/16 22:50 Potassium 4.0 mmol/L (3.6-5.2) 07/15/16 22:50 Chloride 97 mmol/L (98-107) L 07/15/16 22:50 Carbon Dioxide 28 mmol/L (22-30) 07/15/16 22:50 Anion Gap 16 (10-20) 07/15/16 22:50 BUN 12 mg/dL (9-20) 07/15/16 22:50 Creatinine 0.9 MG/DL (0.8-1.5) 07/15/16 22:50 Est GFR ( Amer) > 60 07/15/16 22:50 Est GFR (Non-Af Amer) > 60 07/15/16 22:50 Random Glucose 93 mg/dL (75-110) 07/15/16 22:50 Calcium 8.8 mg/dl (8.6-10.4) 07/15/16 22:50 Total Bilirubin 0.8 mg/dL (0.2-1.3) 07/15/16 22:50 AST 43 U/L (17-59) 07/15/16 22:50 ALT 51 U/L (21-72) 07/15/16 22:50 Alkaline Phosphatase 78 U/L (38-126) 07/15/16 22:50 Total Protein 7.9 g/dL (6.3-8.3) 07/15/16 22:50 Albumin 4.5 g/dL (3.5-5.0) 07/15/16 22:50 Globulin 3.4 gm/dL (2.2-3.9) 07/15/16 22:50 Albumin/Globulin Ratio 1.3 (1.0-2.1) 07/15/16 22:50 Blood Type A POSITIVE 07/15/16 22:50 Antibody Screen Negative 07/15/16 22:50 Attending/Attestation - Attestation I have personally seen and examined this patient.: Yes I have fully participated in the care of the patient.: Yes I have reviewed all pertinent clinical information, including history, physical exam and plan: Yes Notes (Text): 07/17/16 12:10 patient was seen and examined at bedside with the resident He appears comfortable with no complaint of chest discomfort or epigastric pain Patient is status post EGD and removal of foreign body. Patient to for discharge by GI. We will discharge patient home. I agree with the above discharge at the resident.
--- NOTE | 2016-07-19 11:44 | CARD ---
APPROVED REPORT EKG Measurement Heart [id number] <Conclusion> Normal sinus rhythm Possible Left atrial enlargement Borderline ECG
== END 2016-07-16 17:10 | disposition hospice, home (50) | DRG 188 ==
LOC: C.ER 21:58 → C.ENDO 23:58 → UNDOADMOB 07-16 03:22 → C.5T 07-16 03:22 → OBSVTOIN 07-16 13:20
PROVIDERS: ADMIT Internal Medicine; ATTEND Internal Medicine
PROC: 0DC58ZZ Extirpation of Matter from Esophagus, Via Natural or Artificial Opening Endoscopic (ICD-10-PCS; principal; 2016-07-16 01:15)
DX: T18.198A Other foreign object in esophagus causing other injury, initial encounter (principal); B19.20 Unspecified viral hepatitis C without hepatic coma; F11.20 Opioid dependence, uncomplicated; F32.9 Major depressive disorder, single episode, unspecified; D64.9 Anemia, unspecified; K21.9 Gastro-esophageal reflux disease without esophagitis; R06.6 Hiccough; F17.210 Nicotine dependence, cigarettes, uncomplicated; R07.89 Other chest pain; X58.XXXA Exposure to other specified factors, initial encounter